=== PATIENT | male | born 1975 | race Two or more races ===

== ENCOUNTER 2016-07-29 16:35 | Emergency (ER) | payer SELFPAY ==
[2016-07-29] MEDS ORDERED: ONDANSETRON 4 MG/2ML 2 ML VIAL ONE (17:29)
[2016-07-29] MEDS ORDERED: MAALOX/LIDO2%VISC/SIMETHICONE 40 ML BOT ONE (17:29)
[2016-07-29] MEDS ORDERED: LACTATED RINGERS 1,000 ML ONE (17:30)
[2016-07-29 17:31] LABS: BASO % 0.4 % (0.2-1.0); EOS % 0.5 % (0.9-2.9); HEMATOCRIT 44.7 % (32.0-52.0); HEMOGLOBIN 15.8 gm/l (14.0-18.0); IMM NEUT% 0.2 % (0-1); LYMPH # 1.2 (1.0-4.8); LYMPH % 21.9 % (15-45); MEAN CELL VOLUME 84.8 fl (80.0-94.0); MEAN CORPUSCULAR HGB CONC 35.3 g/dl (33.0-37.0); MEAN PLATELET VOLUME 11.3 fl (7.4-10.4); MONO # 0.3 (0.0-0.8); MONO % 5.6 % (4-12); NEUT % 71.4 % (43-75); PLATELET COUNT 204 K/mm3 (130-400); RED CELL DISTRIBUTION WIDTH 11.9 % (11.5-14.5); SPECIFIC GRAVITY 1.005 (1.001-1.030); URINE BILIRUBIN NEGATIVE (NEGATIVE); URINE BLOOD NEGATIVE (NEGATIVE); URINE GLUCOSE (UA) NEGATIVE (NEGATIVE); URINE LEUKOCYTE ESTERASE NEGATIVE (NEGATIVE); URINE NITRITE NEGATIVE (NEGATIVE); URINE PROTEIN NEGATIVE (NEGATIVE); URINE UROBILINOGEN NORMAL (0-1 mg/dl)
[2016-07-29 17:33] LABS: URINE APPEARANCE CLEAR; URINE COLOR YELLOW
[2016-07-29 17:51] LABS: ALB/GLOB RATIO 1.5 (>1.0); ALBUMIN 4.5 gm/dL (3.5-5.7); CALCIUM 9.5 mg/dL (8.6-10.3); MAGNESIUM 2.3 mg/dL (1.9-2.7)
== END 2016-07-29 18:35 | disposition home or self-care (01) ==
LOC: ED 16:35
DX: R10.84 Generalized abdominal pain (principal); R51 Headache; E86.0 Dehydration
CPT/HCPCS: 83690; 85025; 80053; 83735; 81003; 99283 ×2; 96374; A9270; J2405; J7120